=== PATIENT | female | born 1980 | race Caucasian/White ===

== ENCOUNTER 2017-03-07 05:45 | Emergency (ER) | payer MEDICAID ==
[2017-03-07] MEDS ORDERED: Sodium Chloride 0.9% 500 ML IV ONE (05:54)
[2017-03-07 05:57] VITALS: RESP 18
[2017-03-07] MEDS ORDERED: Sodium Chloride 0.9% 1,000 ML ONE (05:58)
--- NOTE | 2017-03-07 06:00 | C.PDOC ---
History Of Present Illness Patient is a 12 weeks 35 year old female who presents to the ER with a complaint of cramping and spotting that began [employer]. Patient states she has had care and an US that was normal. Patient is P:0. Denies dysuria or urinary frequency. Time Seen by Provider: 03/07/17 05:50 Chief Complaint (Nursing): Abdominal Pain History Per: Patient History/Exam Limitations: no limitations Onset/Duration Of Symptoms: Hrs Current Symptoms Are (Timing): Still Present Location Of Pain/Discomfort: Suprapubic Radiation Of Pain To:: None Quality Of Discomfort: Cramping Associated Symptoms: Other (Vaginal spotting). denies: Urinary Symptoms ( Dysuria, frequency) Exacerbating Factors: None Alleviating Factors: None Recent travel outside of the [place]: No : 1 Para: 0 Past Medical History Reviewed: Historical Data, Nursing Documentation, Vital Signs Vital Signs: Last Vital Signs Temp 98.5 F 03/07/17 05:54 Pulse 76 03/07/17 05:54 Resp 18 03/07/17 05:54 BP 112/70 03/07/17 05:54 Pulse Ox 99 03/07/17 06:41 - Medical History PMH: No Chronic Diseases Surgical History: No Surg Hx Family History: States: Unknown Family Hx - Social History Hx Alcohol Use: No Hx Substance Use: No - Immunization History Hx Tetanus Toxoid Vaccination: No Hx Influenza Vaccination: No Hx Pneumococcal Vaccination: No Review Of Systems Gastrointestinal: Positive for: Abdominal Pain (Suprapubic cramping) Genitourinary: Positive for: Other (Vaginal spotting). Negative for: Dysuria, Frequency Physical Exam - Physical Exam Appears: Well, Non-toxic, No Acute Distress Skin: Normal Color, Warm, Dry Head: Atraumatic, Normacephalic Eye(s): bilateral: Normal Inspection, EOMI Nose: Normal Oral Mucosa: Moist Chest: Symmetrical, No Tenderness Cardiovascular: Rhythm Regular Respiratory: No Accessory Muscle Use, Other (Speaking in complete sentences) Gastrointestinal/Abdominal: Soft, Tenderness (Suprapubic tenderness) Neurological/Psych: Oriented x3, Normal Speech, Other (No focal deficits) ED Course And Treatment - Laboratory Results Result Diagrams: 03/07/17 06:03 03/07/17 06:03 O2 Sat by Pulse Oximetry: 99 Progress Note: Blood work, urinalysis and pelvic US ordered. IV fluids administered. Pt refused pain medication. Disposition - Disposition Referrals: Clinic,Med Surg [Primary Care Provider] - Disposition Time: 07:00 Condition: STABLE - Clinical Impression Clinical Impression: First trimester bleeding - Scribe Statement The provider has reviewed the documentation as recorded by the Scribe Brian Melgar All medical record entries made by the Scribe were at my direction and personally dictated by me. I have reviewed the chart and agree that the record accurately reflects my personal performance of the history, physical exam, medical decision making, and the department course for this patient. I have also personally directed, reviewed, and agree with the discharge instructions and disposition. Physician Patient Turnover Patient Signed Over To: Soo Woodson Handoff Comments: Pending US, labs, and re-evaluation.
[2017-03-07 06:06] LABS: BASO # 0.1 K/uL (0.0-0.2); BASO % 0.8 % (0.0-2.0); EOS # 0.2 K/uL (0.0-0.7); EOS % 2.5 % (0.0-4.0); LYMPH # 2.2 K/uL (1.0-4.3); LYMPH % 29.4 % (20.0-40.0); MEAN CELL VOLUME 84.6 fL (81.0-99.0); MEAN CORPUSCULAR HGB CONC 34.3 g/dL (33.0-37.0); MEAN PLATELET VOLUME 6.9 fL (7.2-11.7); MONO # 0.7 K/uL (0.0-0.8); MONO % 9.6 % (0.0-10.0); WHITE BLOOD COUNT 7.6 K/uL (4.8-10.8)
[2017-03-07 06:13] LABS: RBC URINE 1 /hpf (0-3); URINE BILIRUBIN NEGATIVE (NEGATIVE); URINE COLOR Straw (YELLOW); URINE GLUCOSE (UA) NORMAL (Normal); URINE KETONE NEGATIVE (NEGATIVE); URINE LEUKOCYTE ESTERASE NEG Leu/uL (Negative); URINE PROTEIN NEGATIVE (NEGATIVE); URINE UROBILINOGEN NORMAL mg/dL (0.2-1.0); WBC URINE 4 /hpf (0-5)
[2017-03-07 06:17] LABS: CHLORIDE 99 mmol/L (98-107)
[2017-03-07 06:18] LABS: POTASSIUM 4.1 mmol/L (3.6-5.2); SODIUM 134 mmol/L (132-148)
[2017-03-07 06:20] LABS: ALB/GLOB RATIO 1.1 (1.0-2.1); ALKALINE PHOSPHATASE 49 U/L (38-126); ALT/SGPT 17 U/L (9-52); AST/SGOT 27 U/L (14-36); BILIRUBIN,TOTAL 0.8 mg/dL (0.2-1.3); BLOOD UREA NITROGEN 10 mg/dL (7-17); CARBON DIOXIDE 24 mmol/L (22-30); GFR AFRICAN-AMERICAN > 60
[2017-03-07 06:21] LABS: CALCIUM 8.6 mg/dl (8.6-10.4); GLUCOSE,RANDOM 83 mg/dL (65-105)
[2017-03-07 06:46] LABS: URINE BLOOD TRACE (NEGATIVE)
[2017-03-07 07:42] VITALS: BP 112/76; PULSE 71; TEMP 97.9; O2SAT 100
--- NOTE | 2017-03-07 08:49 | US ---
PROCEDURE: OB Pelvic Ultrasound HISTORY: bleeding COMPARISON: None available. FINDINGS: UTERUS: Single Live intrauterine gestation. CRL equivalent to 13 weeks 1 day gestatioin age (Ultrasound estimated): 13 weeks 1 day Date of delivery (Ultrasound estimated) : 09/11/2017 Heart rate: 158 bpm. Dhara-gestational hemorrhage: None. Anterior placenta identified. No evidence of placenta previa. Uterus measures 16.4 x 7.2 x 11.6 cm. No mass CERVIX: Long and closed. No cervical abnormality seen. RIGHT OVARY: Measures 5.6 x 2.9 x 4.6 cm. No mass. Normal flow. LEFT OVARY: Measures 3.1 x 2.3 x 3.3 cm. No mass. Normal flow. FREE FLUID: None. OTHER FINDINGS: None. IMPRESSION: Single live intrauterine gestation of approximately 13 weeks 1 day gestational age. By crown-rump length. heart rate 158 beats per minute. Cervix long and closed. No evidence of placenta previa. Otherwise unremarkable.
== END 2017-03-07 09:03 | disposition home or self-care (01) ==
LOC: C.ER 05:45 → SUPCPDRO 05:45 → C.ER 09:03
DX: O20.9 Hemorrhage in early pregnancy, unspecified (principal); Z3A.13 13 weeks gestation of pregnancy
CPT/HCPCS: 76801; 80053; 81001; 84702; 84703; 85025; 86850; 86900; 99284; J7040